=== PATIENT | female | born 1985 | race American Indian/Alaskan Native ===

== ENCOUNTER 2017-04-15 03:28 | Emergency (ER) | payer BC, OTHER ==
[2017-04-15 05:50] LABS: Basophils % (Auto) 0.8 % (0.0-1.8); Hematocrit 40.5 % (30.3-42.9); Hemoglobin 13.4 gm/dl (10.1-14.3); Mean Corpuscular HGB Conc 33 % (30-34); Mean Corpuscular Volume 77 fl (79-97); Platelet Count 176 K/mm3 (140-440); Red Blood Count 5.24 M/mm3 (3.65-5.03)
[2017-04-15 05:57] LABS: Bilirubin,Urine NEG (Negative); Blood,Urine NEG (Negative); Ketones,Urine 20 mg/dL (Negative); Leukocyte Esterase,Urine NEG (Negative); Mucus,Urine FEW /HPF; Nitrite,Urine NEG (Negative); Protein,Urine <15 mg/dL mg/dL (Negative); RBC,Urine < 1.0 /HPF (0.0-6.0); Urobilinogen,Urine < 2.0 mg/dL (<2.0)
[2017-04-15 06:02] LABS: Mean Corpuscular Hemoglobin 26 pg (28-32)
[2017-04-15 06:08] LABS: Alanine Aminotransferase 8 units/L (7-56); Albumin 3.8 g/dL (3.9-5); Albumin/Globulin Ratio 0.9 %; Alkaline Phosphatase 93 units/L (35-129); Anion Gap 16 mmol/L; Bilirubin,Total < 0.20 mg/dL (0.1-1.2); Blood Urea Nitrogen 14 mg/dL (7-17); Calcium 9.2 mg/dL (8.4-10.2); Carbon Dioxide 27 mmol/L (22-30); Chloride 91.5 mmol/L (98-107); Lipase 31 units/L (13-60); Potassium 4.5 mmol/L (3.6-5.0); Sodium 130 mmol/L (137-145); Total Protein 7.9 g/dL (6.3-8.2)
[2017-04-15 06:18] LABS: Glucose 558 mg/dL (65-100)
[2017-04-15] MEDS ORDERED: ZOFRAN IV ONE (12:19)
[2017-04-15] MEDS ORDERED: MORPHINE IV ONE ×2 (12:19→14:40)
[2017-04-15] MEDS ORDERED: NACL 0.9% 1000 ML 1,000 ML IV ONE (12:20)
--- NOTE | 2017-04-15 12:22 | Emergency Department Report ---
ED Abdominal Pain HPI - General Chief Complaint: Abdominal Pain Stated Complaint: ABD/BACK PAIN/VOMITING/LONG Time Seen by Provider: 04/15/17 11:52 Source: patient Mode of arrival: Ambulatory Limitations: No Limitations - History of Present Illness Initial Comments: 32-year-old female here with complaint of abdominal pain. Patient states she's had back pain and headache for the last week of the last couple days her abdomen started to hurt more. She's had some nausea and vomiting associated with it. It hurts mainly in the center of the abdomen. It's achy with some sharp components. Denies fevers chills. Her blood sugars been under control. -: Gradual, week(s) (1) Location: epigastric Migration to: no migration Severity: moderate Severity scale (0 -10): 7 Quality: cramping, aching Consistency: intermittent Improves With: nothing Worsens With: nothing Associated Symptoms: nausea, vomiting. denies: diarrhea, chills, constipation, dysuria - Related Data Previous Rx's Medication Instructions Recorded Last Taken Type Famotidine [Pepcid] 20 mg PO BID #60 tablet 04/15/17 Unknown Rx Ibuprofen [Motrin 600 MG tab] 600 mg PO Q8H PRN #30 tablet 04/15/17 Unknown Rx Ondansetron [Zofran Odt] 4 mg PO Q8HR #14 tab.rapdis 04/15/17 Unknown Rx Allergies Allergy/AdvReac Type Severity Reaction Status Date / Time lisinopril AdvReac Unknown Verified 04/15/17 17:00 metformin AdvReac Unknown Verified 04/15/17 17:00 ED Review of Systems ROS: Stated complaint: ABD/BACK PAIN/VOMITING/LONG Other details as noted in HPI Comment: All other systems reviewed and negative Constitutional: denies: chills, fever Eyes: denies: eye pain, eye discharge, vision change ENT: denies: ear pain, throat pain Respiratory: denies: cough, shortness of breath, wheezing Cardiovascular: denies: chest pain, palpitations Endocrine: no symptoms reported Gastrointestinal: abdominal pain, nausea, vomiting. denies: diarrhea Genitourinary: denies: urgency, dysuria, discharge Musculoskeletal: denies: back pain, joint swelling, arthralgia Skin: denies: rash, lesions Neurological: denies: headache, weakness, paresthesias Psychiatric: denies: anxiety, depression Hematological/Lymphatic: denies: easy bleeding, easy bruising ED Past Medical Hx - Past Medical History Previous Medical History?: Yes Hx Diabetes: Yes - Surgical History Past Surgical History?: Yes Additional Surgical History: Tonsils, left knee, adnoids. - Family History Family history: no significant - Social History Smoking Status: Former Smoker Substance Use Type: None - Medications Home Medications: Home Medications Medication Instructions Recorded Confirmed Last Taken Type Famotidine [Pepcid] 20 mg PO BID #60 tablet 04/15/17 Unknown Rx Ibuprofen [Motrin 600 MG tab] 600 mg PO Q8H PRN #30 tablet 04/15/17 Unknown Rx Ondansetron [Zofran Odt] 4 mg PO Q8HR #14 tab.rapdis 04/15/17 Unknown Rx ED Physical Exam - General Limitations: No Limitations General appearance: alert, in no apparent distress - Head Head exam: Present: atraumatic, normocephalic - Eye Eye exam: Present: normal appearance. Absent: scleral icterus, conjunctival injection - ENT ENT exam: Present: mucous membranes moist - Neck Neck exam: Present: normal inspection - Respiratory Respiratory exam: Present: normal lung sounds bilaterally. Absent: respiratory distress, wheezes, rales - Cardiovascular Cardiovascular Exam: Present: regular rate, normal rhythm. Absent: systolic murmur, diastolic murmur, rubs, gallop - GI/Abdominal GI/Abdominal exam: Present: soft, tenderness (for gastric tenderness), guarding (I'll voluntary guarding), diminished bowel sounds. Absent: distended, rebound - Extremities Exam Extremities exam: Present: normal inspection - Back Exam Back exam: Present: normal inspection. Absent: CVA tenderness (R), CVA tenderness (L) - Neurological Exam Neurological exam: Present: alert, oriented X3 - Psychiatric Psychiatric exam: Present: normal affect, normal mood - Skin Skin exam: Present: warm, dry, intact, normal color. Absent: rash ED Course Vital Signs 04/15/17 04/15/17 04/15/17 05:05 09:59 11:54 Temperature 98.5 F 98.5 F Pulse Rate 100 H 108 H Respiratory 16 Rate Blood Pressure 143/100 Blood Pressure 130/95 [Left] O2 Sat by Pulse 100 100 Oximetry 04/15/17 04/15/17 04/15/17 11:59 12:00 12:11 Temperature 97.8 F Pulse Rate 79 Respiratory 18 Rate Blood Pressure 136/91 136/91 Blood Pressure 122/87 [Left] O2 Sat by Pulse 100 100 91 Oximetry 04/15/17 04/15/17 04/15/17 12:20 12:30 12:41 Temperature Pulse Rate Respiratory Rate Blood Pressure 136/91 116/88 116/88 Blood Pressure [Left] O2 Sat by Pulse 99 100 Oximetry 04/15/17 04/15/17 04/15/17 12:51 13:00 13:10 Temperature Pulse Rate Respiratory Rate Blood Pressure 116/88 139/85 116/88 Blood Pressure [Left] O2 Sat by Pulse 100 82 L Oximetry 04/15/17 04/15/17 04/15/17 13:21 13:30 13:40 Temperature Pulse Rate Respiratory Rate Blood Pressure 116/88 71/49 71/49 Blood Pressure [Left] O2 Sat by Pulse 97 93 100 Oximetry 04/15/17 04/15/17 04/15/17 13:50 14:01 14:11 Temperature Pulse Rate Respiratory Rate Blood Pressure 71/49 142/95 142/95 Blood Pressure [Left] O2 Sat by Pulse 99 100 100 Oximetry 04/15/17 04/15/17 04/15/17 14:21 14:30 14:40 Temperature Pulse Rate Respiratory Rate Blood Pressure 142/95 132/87 132/87 Blood Pressure [Left] O2 Sat by Pulse 100 100 100 Oximetry 04/15/17 04/15/17 04/15/17 14:51 15:00 15:11 Temperature Pulse Rate Respiratory Rate Blood Pressure 142/95 142/95 132/87 Blood Pressure [Left] O2 Sat by Pulse 100 100 100 Oximetry 04/15/17 04/15/17 04/15/17 15:21 15:31 15:41 Temperature Pulse Rate Respiratory Rate Blood Pressure 132/87 132/87 132/87 Blood Pressure [Left] O2 Sat by Pulse 100 99 100 Oximetry 04/15/17 04/15/17 04/15/17 15:51 16:01 16:11 Temperature Pulse Rate Respiratory Rate Blood Pressure 132/87 132/87 132/87 Blood Pressure [Left] O2 Sat by Pulse 100 100 100 Oximetry 04/15/17 04/15/17 04/15/17 16:21 16:30 16:40 Temperature Pulse Rate Respiratory Rate Blood Pressure 132/87 132/87 132/87 Blood Pressure [Left] O2 Sat by Pulse 100 95 Oximetry 04/15/17 17:31 Temperature Pulse Rate Respiratory Rate Blood Pressure 132/87 Blood Pressure [Left] O2 Sat by Pulse 100 Oximetry ED Medical Decision Making - Lab Data Result diagrams: 04/15/17 05:30 04/15/17 05:30 Laboratory Results - last 24 hr 04/15/17 04/15/17 04/15/17 03:34 05:30 05:30 WBC 10.0 RBC 5.24 H Hgb 13.4 Hct 40.5 MCV 77 L MCH 26 L MCHC 33 RDW 14.0 Plt Count 176 Lymph % (Auto) 21.9 [place] % (Auto) 5.9 Eos % (Auto) 2.0 Baso % (Auto) 0.8 Lymph # 2.2 [place] # 0.6 Eos # 0.2 Baso # 0.1 Seg Neutrophils % 69.4 Seg Neutrophils # 7.0 Sodium 130 L Potassium 4.5 Chloride 91.5 L Carbon Dioxide 27 Anion Gap 16 BUN 14 Creatinine 0.7 Estimated GFR > 60 BUN/Creatinine Ratio 20.00 Glucose 558 H* POC Glucose 437 H Calcium 9.2 Total Bilirubin < 0.20 AST 10 ALT 8 Alkaline Phosphatase 93 Total Protein 7.9 Albumin 3.8 L Albumin/Globulin Ratio 0.9 Lipase 31 Urine Color Urine Turbidity Urine pH Ur Specific [place] Urine Protein Urine Glucose (UA) Urine Ketones Urine Blood Urine Nitrite Urine Bilirubin Urine Urobilinogen Ur Leukocyte Esterase Urine WBC (Auto) Urine RBC (Auto) U Epithel Cells (Auto) Urine Mucus Urine HCG, Qual 04/15/17 Unknown WBC RBC Hgb Hct MCV MCH MCHC RDW Plt Count Lymph % (Auto) [place] % (Auto) Eos % (Auto) Baso % (Auto) Lymph # [place] # Eos # Baso # Seg Neutrophils % Seg Neutrophils # Sodium Potassium Chloride Carbon Dioxide Anion Gap BUN Creatinine Estimated GFR BUN/Creatinine Ratio Glucose POC Glucose Calcium Total Bilirubin AST ALT Alkaline Phosphatase Total Protein Albumin Albumin/Globulin Ratio Lipase Urine Color Straw Urine Turbidity Clear Urine pH 6.0 Ur Specific [place] 1.024 Urine Protein <15 mg/dl Urine Glucose (UA) >=500 Urine Ketones 20 Urine Blood Neg Urine Nitrite Neg Urine Bilirubin Neg Urine Urobilinogen < 2.0 Ur Leukocyte Esterase Neg Urine WBC (Auto) 1.0 Urine RBC (Auto) < 1.0 U Epithel Cells (Auto) 1.0 Urine Mucus Few Urine HCG, Qual Negative - Medical Decision Making 2-year-old female presents to emergency department with complaint of abdominal pain. Pain started worsening over the course of the last 2 days. She's had some nausea and vomiting. She denies fevers and chills. She is white count of 10 and glucose of 550. Her blood sugars have been running out of control as of late. She is very tender on clinical exam and epigastrium. She has mild voluntary guarding. No rebound. Plan a CT and will treat with IV morphine and IV Zofran. Plan to reassess. She improved with IV fluids and Zofran. CT scan negative. No acute intra-abdominal process on CT. Her labs are consistent with ischemic process. Her glucose is now down to 280. Plan to discharge home with oral Zofran and antacids Portions of this chart were dictated with dictation software. There may be dictation errors contained within this note. Critical care attestation.: If time is entered above; I have spent that time in minutes in the direct care of this critically ill patient, excluding procedure time. ED Disposition Clinical Impression: Abdominal pain, Nausea and vomiting Disposition: DC-01 TO HOME OR SELFCARE Is pt being admited?: No Condition: Stable Instructions: Abdominal Pain (ED) Prescriptions: Famotidine [Pepcid] 20 mg PO BID #60 tablet Ibuprofen [Motrin 600 MG tab] 600 mg PO Q8H PRN #30 tablet PRN Reason: Pain Ondansetron [Zofran Odt] 4 mg PO Q8HR #14 tab.rapdis Referrals: PRIMARY CARE, [Primary Care Provider] - 3-5 Days
[2017-04-15] MEDS ORDERED: MORPHINE ONE (16:57)
[2017-04-15 17:47] VITALS: BP 132/87
--- NOTE | 2017-04-15 18:04 | Cat Scan Report ---
FINAL REPORT PROCEDURE: CT ABDOMEN PELVIS W CON TECHNIQUE: Computerized axial tomography of the abdomen and pelvis was performed after the IV injection of iodinated nonionic contrast. HISTORY: abdominal pain, tender in epigastrium COMPARISON: No prior studies are available for comparison. FINDINGS: Visualized lower thorax: No significant abnormality. Liver: Normal size and attenuation. Spleen: Normal size and attenuation. Gallbladder and biliary system: Normal. Pancreas: Normal. Adrenals: Normal. Kidneys: Normal. GI tract: The appendix is visualized and does not appear inflamed. Scattered left colon and sigmoid diverticula are present. No bowel obstruction or acute inflammation. Lymph nodes and mesentery: Normal. Vasculature: Normal. Bladder: Normal. Reproductive organs: There is a 2 centimeter right ovarian cyst. Peritoneum: Trace amount of pelvic fluid is present. Musculoskeletal structures: No significant abnormality. Other: None. IMPRESSION: No acute inflammatory process is seen. Note is made of 2 centimeter right ovarian cyst.
== END 2017-04-15 19:06 | disposition home or self-care (01) ==
LOC: ED 03:28
DX: R10.13 Epigastric pain (principal); R11.2 Nausea with vomiting, unspecified; M54.9 Dorsalgia, unspecified; R51 Headache; E11.9 Type 2 diabetes mellitus without complications; Z88.8 Allergy status to other drugs, medicaments and biological substances; Z87.891 Personal history of nicotine dependence
CPT/HCPCS: 36415; 74177; 80053; 81001; 81025; 82140; 82962; 83690; 85025; 96361; 96374; 96375; 96376; 99284; J2270; J2405; J7030; Q9967; J1815